=== PATIENT | female | born 1960 | race Caucasian/White ===

== ENCOUNTER 2017-07-20 09:20 | Observation (INO) | payer MEDICAID ==
[~2017-07-20 09:20] MED LIST: ACETAMINOPHEN 1000 MG/100 ML IVPB; SOD CHLORIDE 0.9% 1,000 ML IV
[2017-07-20 11:12] LABS: ADD MAN DIFF? NO
[2017-07-20 11:15] LABS: WHITE BLOOD COUNT 5.1 10^3/ul (4.8-10.8)
[2017-07-20 11:15] LABS: BASOPHIL # 0.1 10^3/ul (0.0-0.1); EOSINOPHILS # 0.2 10^3/ul (0.0-0.5); EOSINOPHILS % 4.7 % (0.0-7.0); HEMATOCRIT 36.5 % (37.0-47.0); HEMOGLOBIN 11.5 g/dl (12.0-16.0); LYMPHOCYTES # 1.1 10^3/ul (0.8-2.9); LYMPHOCYTES % 20.7 % (15.0-51.0); MEAN CORPUSCULAR HEMOGLOBIN 28.6 pg (29.0-33.0); MEAN CORPUSCULAR HGB CONC 31.5 g/dl (32.0-37.0); MEAN CORPUSCULAR VOLUME 90.8 fl (82.0-101.0); MEAN PLATELET VOLUME 9.6 fl (7.4-10.4); MONOCYTE # 0.6 10^3/ul (0.3-0.9); MONOCYTES % 11.1 % (0.0-11.0); NEUTROPHIL # 3.2 10^3/ul (1.6-7.5); NEUTROPHILS % 62.3 % (39.0-77.0); PLATELET COUNT 181 10^3/UL (140-415); RED BLOOD COUNT 4.02 10^6/ul (4.20-5.40)
[2017-07-20 11:34] LABS: ALANINE AMINOTRANSFERASE 37 IU/L (13-69); ALBUMIN 4.1 g/dl (3.3-4.9); ALBUMIN/GLOBULIN RATIO 1.28; ALKALINE PHOSPHATASE 71 IU/L (42-121); ANION GAP 17 (8-16); ASPARTATE AMINO TRANSFERASE 21 IU/L (15-46); BILIRUBIN,INDIRECT 0.3 mg/dl (0-1.1); BILIRUBIN,TOTAL 0.3 mg/dl (0.2-1.3); CARBON DIOXIDE 25 mmol/L (21-31); CHLORIDE 108 mmol/L (97-110); GLUCOSE 95 mg/dl (70-220); TOTAL PROTEIN 7.3 g/dl (6.1-8.1)
[2017-07-20 11:35] LABS: BLOOD UREA NITROGEN 18 mg/dl (7-20); CALCIUM 9.4 mg/dl (8.4-10.2); CREATININE 0.67 mg/dl (0.44-1.00); POTASSIUM 4.5 mmol/L (3.5-5.1); SODIUM 145 mmol/L (135-144)
[2017-07-20] MEDS ORDERED: MIDAZOLAM 1 MG/ML 2 ML INJ (12:12)
[2017-07-20] MEDS ORDERED: PROPOFOL 20 ML (12:12)
[2017-07-20] MEDS ORDERED: ROCURONIUM 50 MG INJ ×3 (12:12→13:39)
[2017-07-20] MEDS ORDERED: FENTAnyl 50 MCG/ML VIAL ×2 (12:12→13:06)
[2017-07-20] MEDS ORDERED: LABETALOL HCL 20MG INJ IV (12:30)
[2017-07-20] MEDS ORDERED: MEPERIDINE 25 MG INJ IV (12:30)
[2017-07-20] MEDS ORDERED: DIPHENHYDRAMINE 50 MG INJ IV (12:30)
[2017-07-20] MEDS ORDERED: OXYCODONE/ACETAMINOPHEN (5/325) TAB PO ×2 (12:30)
[2017-07-20] MEDS ORDERED: METOCLOPRAMIDE 10 MG INJ IV (12:30)
[2017-07-20] MEDS ORDERED: morphine (1 MG/ML) 10ML SYRINGE IV ×3 (12:30)
[2017-07-20] MEDS ORDERED: FENTAnyl 50 MCG/ML VIAL IV ×3 (12:30)
[2017-07-20] MEDS ORDERED: EPHEDrine SULFATE 50 MG/5 ML SYG IV (12:30)
[2017-07-20] MEDS ORDERED: HYDROmorphONE (0.2 MG/ML) 10ML SYG IV ×2 (12:30)
[2017-07-20] MEDS ORDERED: CEFAZOLIN 1 GM INJ (13:06)
[2017-07-20] MEDS ORDERED: KETOROLAC 30 MG INJ (13:08)
[2017-07-20] MEDS ORDERED: METOCLOPRAMIDE 10 MG INJ (13:08)
[2017-07-20] MEDS ORDERED: LABETALOL HCL 20MG INJ (13:08)
[2017-07-20] MEDS ORDERED: DEXAMETHASONE 4 MG/ML 1 ML INJ (13:08)
[2017-07-20] MEDS ORDERED: ONDANSETRON 4 MG INJ (13:08)
[2017-07-20] MEDS ORDERED: SUGAMMADEX SODIUM 200 MG/2 ML VIAL IV (13:09)
[2017-07-20] MEDS ORDERED: PHENYLephrine (100 MCG/ML) 5ML SYG (13:29)
[2017-07-20] MEDS ORDERED: ACETAMINOPHEN 1000MG/100ML IV 100 ML IVPB (14:00)
[2017-07-20] MEDS ORDERED: morphine 2 MG INJ IV (14:00)
[2017-07-20] MEDS: CEFAZOLIN 2 GM/50 ML (PMX) 50 ML IVPB (15:05)
[2017-07-20] MEDS: HYDROmorphONE (0.2 MG/ML) 10ML SYG IV (15:06)
[2017-07-20] MEDS: ONDANSETRON 4 MG INJ IV ×2 (15:06→20:41)
[2017-07-20] MEDS: D5W-0.45 NACL + KCL 20 MEQ 1,000 ML IV ×2 (17:59→21:44)
[2017-07-20] MEDS: OXYCODONE/ACETAMINOPHEN (5/325) TAB PO (20:41)
[2017-07-21] MEDS: D5W-0.45 NACL + KCL 20 MEQ 1,000 ML IV ×3 (02:31→12:46)
[2017-07-21] MEDS: ONDANSETRON 4 MG INJ IV (02:31)
[2017-07-21] MEDS: OXYCODONE/ACETAMINOPHEN (5/325) TAB PO (16:46)
== END 2017-07-21 17:30 | disposition home or self-care (01) ==
LOC: SDS 09:20 → REC 13:45 → MS2 16:10
DX: C50.412 Malignant neoplasm of upper-outer quadrant of left female breast (principal); Z17.1 Estrogen receptor negative status [ER-]; I10 Essential (primary) hypertension
CPT/HCPCS: 19307; 71045; 80053; 84703; 85025; 88307; 93005; 99217

== ENCOUNTER 2018-12-20 10:04 | Day surgery (SDC) | payer MEDICAID ==
[2018-12-20] MEDS ORDERED: SOD CHLORIDE 0.9% 1,000 ML IV (10:27)
[2018-12-20] MEDS ORDERED: LIDOCAINE 1% (MPF) 5 ML VIAL (12:40)
[2018-12-20] MEDS ORDERED: FENTAnyl 50 MCG/ML VIAL (13:29)
[2018-12-20] MEDS ORDERED: ONDANSETRON 4 MG INJ (14:57)
== END 2018-12-20 19:00 | disposition home or self-care (01) ==
LOC: SDS 19:00
DX: C50.912 Malignant neoplasm of unspecified site of left female breast (principal); C78.01 Secondary malignant neoplasm of right lung
CPT/HCPCS: 32405; 71045; 77012; 88307; 88313; 88342

== ENCOUNTER 2018-12-20 15:55 | Inpatient (IN) | payer MEDICAID ==
[2018-12-20 16:25] LABS: ADD MAN DIFF? NO
[2018-12-20 16:27] LABS: BASOPHILS % 0.5 % (0.0-2.0); EOSINOPHILS # 0.1 10^3/ul (0.0-0.5); EOSINOPHILS % 2.4 % (0.0-7.0); HEMATOCRIT 33.2 % (37.0-47.0); HEMOGLOBIN 10.3 g/dl (12.0-16.0); LYMPHOCYTES # 0.9 10^3/ul (0.8-2.9); LYMPHOCYTES % 14.5 % (15.0-51.0); MEAN CORPUSCULAR HEMOGLOBIN 25.7 pg (29.0-33.0); MEAN CORPUSCULAR VOLUME 82.8 fl (82.0-101.0); MEAN PLATELET VOLUME 9.2 fl (7.4-10.4); MONOCYTE # 0.5 10^3/ul (0.3-0.9); MONOCYTES % 8.9 % (0.0-11.0); NEUTROPHIL # 4.4 10^3/ul (1.6-7.5); NEUTROPHILS % 73.4 % (39.0-77.0); PLATELET COUNT 164 10^3/UL (140-415); RED BLOOD COUNT 4.01 10^6/ul (4.20-5.40); RED CELL DISTRIBUTION WIDTH 16.9 % (11.5-14.5)
[2018-12-20 16:27] LABS: WHITE BLOOD COUNT 5.9 10^3/ul (4.8-10.8)
[2018-12-20 17:34] LABS: ALANINE AMINOTRANSFERASE 15 IU/L (13-69); ALBUMIN 3.8 g/dl (3.3-4.9); ALBUMIN/GLOBULIN RATIO 1.18; ALKALINE PHOSPHATASE 72 IU/L (42-121); ANION GAP 9 (5-13); ASPARTATE AMINO TRANSFERASE 17 IU/L (15-46); BILIRUBIN,INDIRECT 0.4 mg/dl (0-1.1); BILIRUBIN,TOTAL 0.4 mg/dl (0.2-1.3); BLOOD UREA NITROGEN 19 mg/dl (7-20); CALCIUM 8.7 mg/dl (8.4-10.2); CARBON DIOXIDE 23 mmol/L (21-31); CHLORIDE 110 mmol/L (97-110); CREATININE 0.57 mg/dl (0.44-1.00); Estimated GFR > 60 mL/min (>60); GLUCOSE 96 mg/dl (70-220); SODIUM 142 mmol/L (135-144)
[2018-12-20 17:42] LABS: INR 1.03; PT RATIO 1.1
[2018-12-20 17:43] LABS: PARTIAL THROMBOPLASTIN TIME 23.5 Sec (23.0-35.0); PROTIME 13.6 Sec (11.9-14.9)
[2018-12-20] MEDS: SOD CHLORIDE 0.9% 1,000 ML IV (18:05)
[2018-12-20] MEDS ORDERED: NACL 0.9% 3 ML SYG IV (18:30)
[2018-12-20] MEDS ORDERED: ONDANSETRON 4 MG INJ IV ×2 (18:30→20:00)
[2018-12-20] MEDS ORDERED: ACETAMINOPHEN 325 MG TAB PO (20:00)
[2018-12-20] MEDS: ACETAMINOPHEN 325 MG TAB PO (23:37)
[2018-12-21 06:26] LABS: ADD MAN DIFF? NO
[2018-12-21 06:30] LABS: BASOPHILS % 0.7 % (0.0-2.0); EOSINOPHILS # 0.2 10^3/ul (0.0-0.5); EOSINOPHILS % 2.5 % (0.0-7.0); HEMATOCRIT 33.5 % (37.0-47.0); HEMOGLOBIN 10.5 g/dl (12.0-16.0); LYMPHOCYTES % 17.1 % (15.0-51.0); MEAN CORPUSCULAR HEMOGLOBIN 25.8 pg (29.0-33.0); MEAN CORPUSCULAR HGB CONC 31.3 g/dl (32.0-37.0); MEAN CORPUSCULAR VOLUME 82.3 fl (82.0-101.0); MEAN PLATELET VOLUME 9.2 fl (7.4-10.4); MONOCYTE # 0.5 10^3/ul (0.3-0.9); NEUTROPHIL # 4.3 10^3/ul (1.6-7.5); NEUTROPHILS % 71.5 % (39.0-77.0); PLATELET COUNT 175 10^3/UL (140-415); RED BLOOD COUNT 4.07 10^6/ul (4.20-5.40); RED CELL DISTRIBUTION WIDTH 16.8 % (11.5-14.5)
[2018-12-21 07:06] LABS: ALANINE AMINOTRANSFERASE 16 IU/L (13-69); ALBUMIN 3.5 g/dl (3.3-4.9); ALBUMIN/GLOBULIN RATIO 1.06; ALKALINE PHOSPHATASE 69 IU/L (42-121); ANION GAP 9 (5-13); ASPARTATE AMINO TRANSFERASE 15 IU/L (15-46); BILIRUBIN,INDIRECT 0.5 mg/dl (0-1.1); BILIRUBIN,TOTAL 0.5 mg/dl (0.2-1.3); BLOOD UREA NITROGEN 14 mg/dl (7-20); CALCIUM 8.9 mg/dl (8.4-10.2); CARBON DIOXIDE 23 mmol/L (21-31); CHLORIDE 109 mmol/L (97-110); CHOL/HDL RATIO 5.1 RATIO; CHOLESTEROL 144 mg/dl (100-200); CREATININE 0.63 mg/dl (0.44-1.00); Estimated GFR > 60 mL/min (>60); GLUCOSE 96 mg/dl (70-220); HDL CHOLESTEROL 28 mg/dl (37-92); LDL CHOLESTEROL,CALCULATED 98 mg/dl; MAGNESIUM 1.9 mg/dl (1.7-2.5); POTASSIUM 4.2 mmol/L (3.5-5.1); SODIUM 141 mmol/L (135-144); TOTAL PROTEIN 6.8 g/dl (6.1-8.1); TRIGLYCERIDES 92 mg/dl (0-149)
[2018-12-21 07:31] LABS: HEMOGLOBIN A1C 5.4 % (0-5.9)
[2018-12-21] MEDS: ACETAMINOPHEN 325 MG TAB PO (21:17)
[2018-12-22 06:21] LABS: ADD MAN DIFF? NO
[2018-12-22 06:30] LABS: WHITE BLOOD COUNT 6.6 10^3/ul (4.8-10.8)
[2018-12-22 06:30] LABS: BASOPHILS % 0.6 % (0.0-2.0); EOSINOPHILS # 0.2 10^3/ul (0.0-0.5); EOSINOPHILS % 3.3 % (0.0-7.0); HEMATOCRIT 35.9 % (37.0-47.0); HEMOGLOBIN 11.1 g/dl (12.0-16.0); LYMPHOCYTES # 1.1 10^3/ul (0.8-2.9); LYMPHOCYTES % 17.3 % (15.0-51.0); MEAN CORPUSCULAR HEMOGLOBIN 25.3 pg (29.0-33.0); MEAN CORPUSCULAR HGB CONC 30.9 g/dl (32.0-37.0); MONOCYTE # 0.6 10^3/ul (0.3-0.9); MONOCYTES % 9.7 % (0.0-11.0); NEUTROPHIL # 4.6 10^3/ul (1.6-7.5); NEUTROPHILS % 68.9 % (39.0-77.0); PLATELET COUNT 172 10^3/UL (140-415); RED BLOOD COUNT 4.38 10^6/ul (4.20-5.40); RED CELL DISTRIBUTION WIDTH 16.6 % (11.5-14.5)
== END 2018-12-22 15:28 | disposition home or self-care (01) | DRG 201 ==
LOC: TEL 18:21 → E/R 15:55
DX: J95.811 Postprocedural pneumothorax (principal); Z85.3 Personal history of malignant neoplasm of breast; R91.8 Other nonspecific abnormal finding of lung field
CPT/HCPCS: 71045; 71250; 77012; 80053; 80061; 83036; 83735; 84443; 85025; 85610; 85730; 88307; 88313; 88342; 99285-25; G0378